=== PATIENT | female | born 1975 | race Caucasian/White ===

== ENCOUNTER 2018-03-14 07:10 | Day surgery (SDC) | payer OTHER | END 2018-03-14 19:30 | disposition home or self-care (01) | LOC: CIR.AMB 07:10 | DX: C50.912 Malignant neoplasm of unspecified site of left female breast (principal) ==

== ENCOUNTER 2018-05-01 08:10 | Inpatient (IN) | payer OTHER ==
[~2018-05-01] VITALS: Ht 157.5 cm; Wt 55.8 kg
== END 2018-05-04 13:12 | disposition home or self-care (01) | DRG 581 ==
LOC: O/R 05-02 06:17 → SURH 05-02 06:17 → O/R 05-02 16:10 → SURH 05-02 16:41
PROVIDERS: Plastic Surgery; Surgery
PROC: 0HHV0NZ Insertion of Tissue Expander into Bilateral Breast, Open Approach (ICD-10-PCS; 2018-05-02)
PROC: 0HTV0ZZ Resection of Bilateral Breast, Open Approach (ICD-10-PCS; principal; 2018-05-02 14:45)
PROC: 07T60ZZ Resection of Left Axillary Lymphatic, Open Approach (ICD-10-PCS; 2018-05-02 14:45)
DX: C50.212 Malignant neoplasm of upper-inner quadrant of left female breast (principal); Z90.13 Acquired absence of bilateral breasts and nipples
CPT/HCPCS: 19303; 38525; 38792; 19357; 78195; A9541

== ENCOUNTER 2018-05-01 08:12 | Outpatient (CLI) | payer OTHER | END 2018-05-01 08:27 | disposition home or self-care (01) | LOC: LAB 08:12 | DX: C50.912 Malignant neoplasm of unspecified site of left female breast (principal) ==

== ENCOUNTER 2018-07-28 07:30 | Day surgery (SDC) | payer OTHER ==
[~2018-07-28 07:30] MED LIST: TAMOXIFEN CITRA20 MG
== END 2018-07-28 16:10 | disposition home or self-care (01) ==
LOC: CIR.AMB 07:30
DX: Z90.13 Acquired absence of bilateral breasts and nipples (principal)

== ENCOUNTER 2018-08-27 07:10 | Outpatient (CLI) | payer OTHER | END 2018-08-27 07:16 | disposition home or self-care (01) | LOC: SONOGRAMA 07:10 | DX: Z90.12 Acquired absence of left breast and nipple (principal) ==